=== PATIENT | female | born 1960 | race Caucasian/White ===

== ENCOUNTER 2017-11-01 11:54 | Day surgery (SDC) | payer OTHER ==
[2017-10-31 16:37] VITALS: BMI 39.4
[2017-11-01] MEDS ORDERED: LIDOCAINE HCL 2% (20ML MULTI-DOSE VIAL) NR ONE (13:55)
[2017-11-01] MEDS ORDERED: PROPOFOL 20 ML ONE ×4 (13:55)
[2017-11-01 14:50] VITALS: TEMP 98.2
[2017-11-01 15:27] VITALS: BP 131/78; PULSE 58
== END 2017-11-01 15:39 | disposition home or self-care (01) ==
LOC: JASU-ENDO 11:54
PROVIDERS: ATTEND Surgery
PROC: 0DJ08ZZ Inspection of Upper Intestinal Tract, Via Natural or Artificial Opening Endoscopic (ICD-10-PCS; principal; 2017-11-01 13:00)
DX: Z01.818 Encounter for other preprocedural examination (principal); E66.01 Morbid (severe) obesity due to excess calories

== ENCOUNTER 2017-11-20 06:02 | Inpatient (IN) | payer OTHER ==
[2017-11-19 09:24] VITALS: BMI 38.0
[~2017-11-20 06:02] MED LIST: BUPIVACAINE HCL/PF (5 MG/ML) 30 ML VIAL IJ ONE; ceFAZolin SODIUM 1 GM VIAL IVPB ONE
[2017-11-20] MEDS ORDERED: ROPIVACAINE HCL 0.5% 30ML VIAL ONE (07:41)
[2017-11-20] MEDS ORDERED: MIDAZOLAM HCL 2 MG/2 ML SINGLE DOSE VIAL ONE ×2 (07:42)
[2017-11-20] MEDS ORDERED: BUPIVACAINE HCL/PF 0.5% (5MG/ML) 10 ML VIAL ONE (07:59)
--- NOTE | 2017-11-20 08:23 | HP ---
Admitting History and Physical - Admission Chief Complaint: Morbid obesity History Source: Patient Limitations to Obtaining History: No Limitations - Past Medical History Cardiovascular: Yes: CAD, HTN Pulmonary: Yes: Sleep Apnea ...LMP Comment: 4yrs ago Psych: Yes: Depression Endocrine: Yes: Diabetes Mellitus - Past Surgical History Past Surgical History: Yes: Cataract Removal, Cholecystectomy - Smoking History Smoking history: Never smoked Have you smoked in the past 12 months: No - Alcohol/Substance Use Hx Alcohol Use: Yes (socially) Home Medications - Allergies Allergies/Adverse Reactions: Allergies Allergy/AdvReac Type Severity Reaction Status Date / Time No Known Drug Allergies Allergy Unverified 11/20/17 06:43 - Home Medications Home Medications: Ambulatory Orders Aspirin [Aspirin EC] 81 mg PO DAILY 09/12/13 Bimatoprost [Lumigan] 5 ml OP DAILY 09/12/13 Cyclosporine [Restasis] 1 each OP DAILY 09/12/13 Ascorbic Acid [Vitamin C] 500 mg PO DAILY 10/31/17 Cyanocobalamin (Vitamin B-12) [Vitamin B-12] 1,000 mcg PO DAILY 10/31/17 Escitalopram Oxalate [Lexapro -] 1 tab PO HS 10/31/17 Metoprolol Succinate 25 mg PO HS 10/31/17 Multivitamin with Iron [Multivitamins with Iron] 1 tab PO DAILY 10/31/17 Macy-3 Fatty Acids/Fish Oil [Fish Oil 1,000 mg Capsule] 1 cap PO HS 10/31/17 Ustekinumab [Stelara] 90 mg SQ ASDIR 10/31/17 metFORMIN HCL [Glucophage -] 850 mg PO BID 10/31/17 Cholecalciferol (Vitamin D3) [Vitamin D3] 1,000 unit PO DAILY 11/19/17 Famotidine [Pepcid] 20 mg PO BID #60 tablet 11/20/17 Oxycodone HCl/Acetaminophen [Percocet 5-325 mg Tablet] 1 - 2 tab PO Q6H #28 tab MDD 4 11/20/17 Family Disease History - Family Disease History Family History: Unremarkable Review of Systems - Review of Systems Constitutional: denies: Chills, Fever HENT: reports: No Symptoms Neck: reports: No Symptoms Respiratory: reports: No Symptoms Gastrointestinal: reports: No Symptoms Neurological: reports: No Symptoms Pain Intensity: 0 Physical Examination Vital Signs: Vital Signs Temperature 98.4 F 11/20/17 06:39 Pulse Rate 65 11/20/17 06:39 Respiratory Rate 20 11/20/17 06:39 Blood Pressure 127/72 11/20/17 06:39 O2 Sat by Pulse Oximetry (%) 97 11/20/17 06:39 Constitutional: Yes: Calm Neck: Yes: WNL Cardiovascular: Yes: WNL Respiratory: Yes: Regular Gastrointestinal: Yes: Soft, Abdomen, Obese Neurological: Yes: Alert, Oriented Problem List - Problems (1) Morbid (severe) obesity due to excess calories Code(s): E66.01 - MORBID (SEVERE) OBESITY DUE TO EXCESS CALORIES (2) Diabetes mellitus Code(s): E11.9 - TYPE 2 DIABETES MELLITUS WITHOUT COMPLICATIONS Qualifiers: Diabetes mellitus type: other specified (including GREG) Diabetes mellitus exterminator helper termite insulin use: unspecified care home insulin use status Diabetes mellitus complication status: with unspecified complications Qualified Code(s) : E13.8 - Other specified diabetes mellitus with unspecified complications (3) Hypertension Code(s): I10 - ESSENTIAL (PRIMARY) HYPERTENSION Qualifiers: Hypertension type: unspecified Qualified Code(s): I10 - Essential (primary ) hypertension (4) CAD (coronary artery disease) Code(s): I25.10 - ATHSCL HEART DISEASE OF [place] CORONARY ARTERY W/O ANG PCTRS Qualifiers: Coronary Disease-Associated Artery/Lesion type: unspecified vessel or lesion type [place] vs. transplanted heart: [place] heart Associated angina: angina presence unspecified Qualified Code(s): I25.10 - Atherosclerotic heart disease of [place] coronary artery without angina pectoris (5) Depression Code(s): F32.9 - MAJOR DEPRESSIVE DISORDER, SINGLE EPISODE, UNSPECIFIED Qualifiers: Depression Type: unspecified Qualified Code(s): F32.9 - Major depressive disorder, single episode, unspecified (6) Sleep apnea Code(s): G47.30 - SLEEP APNEA, UNSPECIFIED Qualifiers: Sleep apnea type: unspecified type Qualified Code(s): G47.30 - Sleep apnea , unspecified
[2017-11-20] MEDS ORDERED: ceFAZolin SODIUM 1 GM VIAL ONE (08:25)
[2017-11-20] MEDS ORDERED: LIDOCAINE HCL/PF 2% SDV 5ML VIAL ONE (08:25)
[2017-11-20] MEDS ORDERED: fentaNYL CITRATE 250 MCG/5 ML VIAL ONE (08:26)
[2017-11-20] MEDS ORDERED: ROCURONIUM BROMIDE 50 MG/5 ML VIAL ONE (08:27)
[2017-11-20] MEDS ORDERED: PROPOFOL 20 ML ONE ×2 (08:27)
[2017-11-20] MEDS ORDERED: ceFAZolin SODIUM 1 GM VIAL IVPB ONE (08:41)
[2017-11-20] MEDS ORDERED: DEXAMETHASONE SOD PHOSPHATE 4 MG/1 ML VIAL ONE (08:56)
[2017-11-20] MEDS ORDERED: PNEUMOC 13-VAL CONJ-DIP CRM/PF 0.5 ML DISP.SYRIN IM ONE (09:00)
[2017-11-20] MEDS ORDERED: GLYCOPYRROLATE 0.2 MG/1 ML VIAL ONE (09:22)
[2017-11-20] MEDS ORDERED: NEOSTIGMINE METHYLSULFATE 0.5 MG/ML - 10 ML MDV ONE (09:22)
[2017-11-20] MEDS ORDERED: BUPIVACAINE HCL/PF (5 MG/ML) 30 ML VIAL IJ ONE (09:50)
[2017-11-20] MEDS ORDERED: morphine CARPU-JECT 4 MG/1 ML DISP.SYRIN IVPUSH PRN (10:03)
--- NOTE | 2017-11-20 10:05 | OP ---
Operative Note - Note: Operative Date: 11/20/17 Pre-Operative Diagnosis: Morbid obesity Operation: Laparoscopic vertical sleeve gastrectomy, wedge liver biopsy, EGD Post-Operative Diagnosis: Other (morbid obesity, hepatomegaly) Senior Accounts Payable Clerk: Zofia Santos Anesthesia: General Specimens Removed: Greater curveture of stomach. Liver biopsy Estimated Blood Loss (mls): 30 Drains & Tubes with Location: 36 Fr Bougie Operative Report Dictated: Yes
[2017-11-20] MEDS ORDERED: ACETAMINOPHEN 1000 MG/100 ML VIAL (NON FORMULARY) IVPB ONE (10:22)
--- NOTE | 2017-11-20 10:23 | SPEC ---
DATE OF OPERATION: 11/20/2017 SURGEON: Chris Gallardo MD RECOVERY AGENT: GARO Aquino PREOPERATIVE DIAGNOSES: 1. Morbid obesity. 2. Body mass index of 38.1. 3. Diabetes. 4. Hypertension. 5. Sleep apnea. 6. Depression. POSTOPERATIVE DIAGNOSES: 1. Morbid obesity. 2. Body mass index of 38.1. 3. Diabetes. 4. Hypertension. 5. Sleep apnea. 6. Depression. 7. Hepatomegaly. PROCEDURE: 1. Laparoscopic vertical sleeve gastrectomy. 2. Laparoscopic wedge liver biopsy. 3. Esophagogastroduodenoscopy. SPECIMEN: 1. Greater curvature of stomach. 2. Liver biopsy. ESTIMATED BLOOD LOSS: 30 mL DRAINS: None. ANESTHESIA: GET. BOUGIE: Size 36-[place]. REASON FOR PROCEDURE: This 56-year-old female presented to the office for weight loss options. After describing different options, she decided to proceed with laparoscopic, possible open vertical sleeve gastrectomy, possible liver biopsy, and upper endoscopy. RISKS AND BENEFITS: After describing the different options for weight loss management, the patient decided to proceed with a laparoscopic, possible open vertical sleeve gastrectomy. The patient was seen by the respective subspecialties and cleared for surgery. The risks and benefits of the procedure were explained. These included bleeding, infection, hernia, TX, DVT, PE, injury to surrounding structures including the liver, colon, bowel, spleen, esophagus, vessel injury, nerve injury, weight regain, gastric leak, staple line leak, sleeve leak, obstruction, vitamin deficiency, hair loss and as some of the possible complications. The patient understood and signed informed consent. DESCRIPTION OF PROCEDURE: The patient was placed supine on the operating room table. The patient underwent general endotracheal intubation. The arms were brought out at 90 degrees and secured. A footboard was placed and the legs were secured laterally with padding. The abdomen was prepped and draped in the usual sterile fashion. A timeout was performed. An incision was made in the left upper quadrant and a Veress needle inserted. Pneumoperitoneum was established. Subsequently, the Veress needle was removed and a 5-mm trocar was placed under direct visualization with the laparoscope. The laparoscopic camera was then inserted and inspection of the abdominal cavity was performed. An incision was then made in the supraumbilical area and a 15-mm trocar was placed under direct visualization. A 5-mm trocar was then placed in the right upper quadrant and a 5-mm trocar was placed below the left subcostal margin. A stab wound was made in the subxiphoid area and a Ana Laura clamp inserted and removed to dilate the tract. A Aramis liver retractor was inserted. The post was secured at the bedside by the nursing staff. The patient was placed in steep reverse Trendelenburg position and the Aramis liver retractor was used to secure the liver towards the anterior abdominal wall. The pylorus was identified and 6 cm proximal to it, the lesser sac was entered using the LigaSure device. All lateral attachments to the greater curvature of the stomach, including the short gastric vessels, were ligated using the LigaSure device toward the gastrosplenic and gastrophrenic ligaments. Once this was done in its entirety, it was confirmed that all tubes within the nasal or oropharyngeal cavity, including a temperature probe, was removed by Anesthesia. The bougie was then inserted by Anesthesia. Transection of the stomach was then begun staying adjacent to the bougie but away from the angularis. Transection of the stomach was performed near the portion of the stomach where the lesser sac was entered. Two laparoscopic Endo-YEU black zafar were used at this location. Laparoscopic Endo YUE purple staple loads were then used for the remainder of the transection until the greater curvature of the stomach was fully transected. This was done staying close to the bougie. Care was taken to stay away from the angle of His cephalad. The staple line was then inspected. Hemostasis was identified. A leak test was then performed. It was clamped distally to the staple line. Irrigation solution was placed in the left upper quadrant and air was insufflated by Anesthesia into the sleeve. No leaks were identified. No obstruction was identified. This was done through the entirety of the staple line. In addition, an upper endoscopy was performed. The endoscope was placed into the patients mouth and the entirety of the esophagus, GE junction, gastric pouch and staple line were inspected. No obstruction or leak was noted. The stomach was suctioned and the endoscope removed fully intact. At this point, the irrigation solution was suctioned and again, hemostasis was noted. A wedge liver biopsy was then performed. The left lobe of the liver was identified and a portion of the edge was grasped. Using electrocautery, a wedge of the liver was excised. This was removed and sent off the field as specimen. Hemostasis at the site of the wedge liver biopsy was attained using electrocautery. The 15-mm supraumbilical trocar was then removed and the greater curvature specimen removed from the site using a sponge stick reveles. The specimen was inspected and a Veress needle inserted. The specimen insufflated adequately and no leak was identified. The staple line was noted to be intact. A Terrance-Scarlett device was then used to close the fascia with a 0 Vicryl suture at the site. Again, hemostasis was noted. The Aramis liver retractor was then removed under direct visualization. Pneumoperitoneum was desufflated and the fascial sutures were secured. Hemostasis was noted at all incision sites and Marcaine was injected at all incision sites. All incision sites were closed using 4-0 Biosyn. Sterile dressings were applied. The patient tolerated the procedure well and was transferred to the recovery room in stable condition. The patient was transferred to telemetry for further monitoring. Leah [id number]
--- NOTE | 2017-11-20 10:23 | SURG ---
Surgery Slps Note Slps: Zofia Santos PA-C Date of Service: 11/20/17 Diagnosis: morbid obesity, Procedure: Laparoscopic vertical sleeve gastrectomy, wedge liver biopsy, EGD I was present for the entirety of the operative procedure. For further detail, please refer to operative report. Visit type - Case Type Case Type: Scheduled - Emergency Emergency Visit: No - New patient This patient is new to me today: Yes Date on this admission: 11/20/17
[2017-11-20] MEDS ORDERED: FAMOTIDINE 20 MG/50 ML IVPB 20 MG/50 ML MG IVPB ONE (10:27)
[2017-11-20] MEDS ORDERED: LACTATED RINGERS SOLUTION 1,000 ML IV SCH (10:30)
[2017-11-20] MEDS: ACETAMINOPHEN 1000 MG/100 ML VIAL (NON FORMULARY) IVPB SCH ×3 (10:34→21:49)
[2017-11-20] MEDS: METOCLOPRAMIDE HCL INJECTION 10 MG/2 ML VIAL IVPUSH SCH ×3 (10:35→21:50)
[2017-11-20] MEDS: FAMOTIDINE 20 MG/50 ML IVPB 20 MG/50 ML MG IVPB SCH ×2 (10:44→21:47)
[2017-11-20] MEDS ORDERED: FAMOTIDINE 20 MG PREMIXED IVPB IVPB ONE (10:44)
[2017-11-20] MEDS: ONDANSETRON 4 MG/2 ML VIAL IVPUSH SCH ×4 (11:00→21:54)
[2017-11-20] MEDS ORDERED: morphine SULFATE 4 MG/ML VIAL IVPUSH PRN (11:17)
[2017-11-20 11:52] LABS: HEMOGLOBIN 14.4 GM/dL (10.7-15.3); MCH 30.8 pg (25.7-33.7); MCHC 33.4 g/dl (32.0-36.0); MEAN PLT VOLUME 8.8 fl (7.5-11.1); PLATELET COUNT 237 K/MM3 (134-434); RBC 4.68 M/mm3 (3.60-5.2); RDW 13.7 % (11.6-15.6); WHITE BLOOD COUNT 13.2 K/mm3 (4.0-10.0)
[2017-11-20 12:18] LABS: ALBUMIN 3.8 g/dl (3.4-5.0); ALK PHOS 93 U/L (45-117); ANION GAP 6 (8-16); BILIRUBIN,TOTAL 0.5 mg/dL (0.2-1.0); BLOOD UREA NITROGEN 14 mg/dL (7-18); CALCIUM 8.5 mg/dL (8.5-10.1); CHLORIDE 105 mmol/L (98-107); CO2 28 mmol/L (21-32); CREATININE 0.7 mg/dL (0.55-1.02); GLUCOSE,RANDOM 148 mg/dL (74-106); POTASSIUM 3.8 mmol/L (3.5-5.1); SGOT/AST 57 U/L (15-37); SGPT/ALT 66 U/L (12-78); SODIUM 139 mmol/L (136-145); TOT PROT 7.4 g/dl (6.4-8.2)
[2017-11-20] MEDS ORDERED: ONDANSETRON 4 MG/2 ML VIAL ONE (14:22)
[2017-11-20] MEDS: SODIUM CHLORIDE 1,000 ML IV SCH ×2 (15:15→21:50)
[2017-11-20] MEDS: ENOXAPARIN NA (PORCINE) 40 MG/0.4 ML DISP.SYRIN SQ SCH (21:47)
[2017-11-21] MEDS: ONDANSETRON 4 MG/2 ML VIAL IVPUSH SCH ×5 (01:32→18:43)
[2017-11-21] MEDS ORDERED: PT OWN MED DRAWER 7, Y5N ONE (03:17)
[2017-11-21] MEDS: ACETAMINOPHEN 1000 MG/100 ML VIAL (NON FORMULARY) IVPB SCH (03:31)
[2017-11-21] MEDS: METOCLOPRAMIDE HCL INJECTION 10 MG/2 ML VIAL IVPUSH SCH ×3 (03:32→16:37)
[2017-11-21 06:28] LABS: MCH 31.3 pg (25.7-33.7); MCHC 34.3 g/dl (32.0-36.0); MEAN CELL VOLUME 91.3 fl (80-96); MEAN PLT VOLUME 8.6 fl (7.5-11.1); PLATELET COUNT 208 K/MM3 (134-434); RBC 3.83 M/mm3 (3.60-5.2); RDW 13.4 % (11.6-15.6); WHITE BLOOD COUNT 11.5 K/mm3 (4.0-10.0)
[2017-11-21 06:54] LABS: CHLORIDE 104 mmol/L (98-107); SODIUM 140 mmol/L (136-145)
[2017-11-21 07:17] LABS: ALBUMIN 3.1 g/dl (3.4-5.0); ALK PHOS 68 U/L (45-117); ANION GAP 8 (8-16); BILIRUBIN,TOTAL 0.7 mg/dL (0.2-1.0); BLOOD UREA NITROGEN 8 mg/dL (7-18); CALCIUM 7.7 mg/dL (8.5-10.1); CO2 28 mmol/L (21-32); CREATININE 0.5 mg/dL (0.55-1.02); GLUCOSE,RANDOM 102 mg/dL (74-106); SGOT/AST 52 U/L (15-37); SGPT/ALT 62 U/L (12-78)
[2017-11-21] MEDS ORDERED: PNEUMOC 13-VAL CONJ-DIP CRM/PF 0.5 ML DISP.SYRIN IM ONE ×2 (09:00→14:00)
--- NOTE | 2017-11-21 09:19 | PN ---
Progress Note (short form) - Note Progress Note: POD #1 Alert. Resting comfortably. Adequate pain control. No acute events since surgery. OOB and ambulating unassisted. Voiding spontaneously. Denies n/v/f/c, CP or SOB. Last Vital Signs Temp Pulse Resp BP Pulse Ox 99.2 F 64 18 143/69 99 11/21/17 06:00 11/21/17 06:00 11/21/17 06:00 11/21/17 06:00 11/20/17 20:47 CBC, BMP 11/21/17 06:00 11/21/17 06:00 UGI: no leak, extravasation of contrast or outlet obstruction. Gen: nad ABD: all surgical ports c/d/i LE: SCDs bilat. Soft. NT Problem List - Problems (1) Morbid (severe) obesity due to excess calories Assessment/Plan: POD #1 s/p Laparoscopic vertical sleeve gastrectomy, wedge liver biopsy, EGD Bariatric Stage 1 protocol started Cont OOB and ambulate Possible DC home later today if tolerates diet Pain management PRN Code(s): E66.01 - MORBID (SEVERE) OBESITY DUE TO EXCESS CALORIES
[2017-11-21] MEDS ORDERED: oxyCODONE HCL 5 MG TABLET PO PRN (09:21)
[2017-11-21] MEDS: ENOXAPARIN NA (PORCINE) 40 MG/0.4 ML DISP.SYRIN SQ SCH (09:23)
[2017-11-21] MEDS: FAMOTIDINE 20 MG/50 ML IVPB 20 MG/50 ML MG IVPB SCH (09:23)
[2017-11-21] MEDS: SODIUM CHLORIDE 1,000 ML IV SCH (09:23)
[2017-11-21] MEDS ORDERED: SODIUM CHLORIDE 1,000 ML IV SCH (09:30)
--- NOTE | 2017-11-21 11:28 | PN ---
Progress Note (short form) - Note Progress Note: Post op day#1.S/P Gastric sleeve placement under GA with bilateral TAP block uneventful.Patient stable.No any anesthesia related problem.Patient DC from the anesthesia care.
[2017-11-21] MEDS ORDERED: PNEUMOCOCCAL 23 VACCINE 0.5 ML VIAL IM ONE (14:30)
[2017-11-21 18:45] VITALS: BP 147/74; PULSE 60; TEMP 97.5
--- NOTE | 2017-11-22 17:39 | PATH ---
Surgical Pathology Report Patient Name: AMRITA BURLESON [facility]. Rec. #: [id number] /Age/Gender: 1960 (Age: 56) / F Account: [id number] Location: 4 SO PEDS/ADOL Taken: 11/20/2017 Received: 11/20/2017 Reported: 11/22/2017 Physicians: Chris Gallardo M.D. Specimen(s) Received A: GREATER CURVATURE STOMACH B: LIVER BIOPSY Clinical History Morbid obesity Final Diagnosis A. GREATER CURVATURE STOMACH, LAPAROSCOPIC VERTICAL SLEEVE GASTRECTOMY: SEGMENT OF STOMACH SHOWING MILD CHRONIC GASTRITIS. IMMUNOSTAINING IS NEGATIVE FOR H. PYLORI ORGANISMS. B. LIVER, BIOPSY: LIVER TISSUE WITH STEATOSIS (UP TO 50%), DIFFUSE. NO HISTOLOGIC EVIDENCE OF HEPATITIS. NO INCREASE IN FIBROSIS (TRICHROME STAIN) OR IRON (IRON STAIN) DEPOSITION. Electronically Signed Brianna Ansari M.D. Gross Description A. Received in formalin, labeled "greater curvature of stomach," is a 101 gram, 17.5 x 3.5 x 3.0 cm. portion of stomach with a stapled margin of resection. The serosa is boogie-hess with minimal attached fat. The mucosa is boogie-pink with normal folds. No mucosal masses are identified. Concrete Mixer Truck Driver sections are submitted in one cassette. B. Received in formalin labeled "liver biopsy," is a 1.6 x 0.7 x 0.6 cm boogie portion of soft tissue, consistent with a liver biopsy. The specimen is bisected and entirely submitted in one cassette. /11/20/2017 saudi11/20/2017
== END 2017-11-21 19:25 | disposition home or self-care (01) | DRG 403 ==
LOC: JSAMEDAYSX 06:02 → J4S 15:25
PROVIDERS: ADMIT Surgery; ATTEND Surgery
PROC: 0DB64Z3 Excision of Stomach, Percutaneous Endoscopic Approach, Vertical (ICD-10-PCS; principal; 2017-11-20 08:00)
PROC: 0DJ08ZZ Inspection of Upper Intestinal Tract, Via Natural or Artificial Opening Endoscopic (ICD-10-PCS; 2017-11-20 08:00)
PROC: 0FB24ZX Excision of Left Lobe Liver, Percutaneous Endoscopic Approach, Diagnostic (ICD-10-PCS; 2017-11-20 08:00)
DX: E66.01 Morbid (severe) obesity due to excess calories (principal); R16.0 Hepatomegaly, not elsewhere classified; I25.10 Atherosclerotic heart disease of native coronary artery without angina pectoris; I10 Essential (primary) hypertension; E11.9 Type 2 diabetes mellitus without complications; F32.9 Major depressive disorder, single episode, unspecified; G47.30 Sleep apnea, unspecified; Z79.84 Long term (current) use of oral hypoglycemic drugs; Z68.38 Body mass index [BMI] 38.0-38.9, adult
CPT/HCPCS: 36415; 74241-TC-FY; 80053; 82962; 85027; 86850; 86900; 86901; 88305-TC; 90732; 94760; G0009; J0131; J7030

== ENCOUNTER 2018-07-25 08:58 | Emergency (ER) | payer OTHER ==
[2018-07-25 09:04] VITALS: BP 130/74; PULSE 77; TEMP 97.9; BMI 26.7
[2018-07-25] MEDS ORDERED: KETOROLAC TROMETHAMINE 60 MG/2 ML VIAL IM ONE (09:40)
[2018-07-25] MEDS ORDERED: KETOROLAC TROMETHAMINE 60 MG/2 ML VIAL ONE (09:43)
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
== END 2018-07-25 11:20 | disposition home or self-care (01) ==
LOC: JERFT 08:58
PROC: 3E0233Z Introduction of Anti-inflammatory into Muscle, Percutaneous Approach (ICD-10-PCS; principal; 2018-07-25)
DX: M62.830 Muscle spasm of back (principal); S13.4XXA Sprain of ligaments of cervical spine, initial encounter; V43.52XA Car driver injured in collision with other type car in traffic accident, initial encounter; Y93.89 Activity, other specified; Y92.410 Unspecified street and highway as the place of occurrence of the external cause; J45.909 Unspecified asthma, uncomplicated; K21.9 Gastro-esophageal reflux disease without esophagitis; I10 Essential (primary) hypertension
CPT/HCPCS: 70450-TC; 72050-TC-FY; 72100-TC-FY; 99281-25